=== PATIENT | female | born 1990 | race African-American/Black ===

== ENCOUNTER 2017-01-17 11:45 | Emergency (ER) | payer OTHER ==
[~2017-01-17] VITALS: Ht 160 cm; Wt 79.8 kg
[2017-01-17 12:54] LABS: BASOPHIL COUNT 0.1 K/uL (0-0.1); EOSINOPHIL (%) 3.1 % (0-5); EOSINOPHIL COUNT 0.2 K/uL (0-0.3); HEMATOCRIT 35.2 % (36.0-46.0); IMMATURE GRANULOCYTE (%) 0.1 % (0.0-0.7); IMMATURE GRANULOCYTE COUNT 0.1 K/uL; LYMPHOCYTE COUNT 1.9 K/uL (1.0-2.8); MCH 31.1 PG (29.0-34.0); MCHC 35.2 G/DL (30.0-36.0); MCV 88.2 FL (83-99); MEAN PLAT.VOLUME 11.5 uM^3 (9.5-12.4); MONOCYTE (%) 6.7 % (3-12); MONOCYTE COUNT 0.5 K/uL (0-0.8); NEUTROPHIL (%) 64.1 % (45-76); NEUTROPHIL COUNT 4.9 K/uL (1.8-6.4); PLATELET COUNT 218 K/uL (156-360); RBC DIS.WIDTH-CV 12.9 % (11.8-14.6); RBC DIS.WIDTH-SD 40.6 % (39-53); RED BLOOD COUNT 3.99 M/uL (3.80-5.20); WHITE BLOOD COUNT 7.7 K/uL (4.1-10.2)
[2017-01-17 13:04] LABS: CHLORIDE 109 mEq/L (99-109); POTASSIUM 3.6 mEq/L (3.7-5.4); SODIUM 142 mEq/L (136-147)
[2017-01-17 13:06] LABS: GLUCOSE 64 mg/dL (70-99)
[2017-01-17 13:07] LABS: ANION GAP 7 MEQ/L (2-14)
[2017-01-17 13:08] LABS: TOTAL BILIRUBIN 0.2 mg/dL (0.0-1.0)
[2017-01-17 13:10] LABS: ALKALINE PHOSPHATASE 85 IU/L (3-129); GFR ESTIMATE (CALCULATED) > 59 mL/min/
[2017-01-17 13:11] LABS: UREA NITROGEN (BUN) 9 mg/dL (9-23)
[2017-01-17 13:13] LABS: LIPASE 34 U/L (1.0-51.0)
[2017-01-17] MEDS ORDERED: VALTREX50 MG/ML PO (14:24)
[2017-01-17] MEDS ORDERED: MIRALAX17 GM PO (14:24)
[2017-01-17 14:58] VITALS: BP 121/83
[2017-01-18 12:16] LABS: CHLAMYDIA TRACHOMATIS NEGATIVE; NEISSERIA GONORRHOEAE NEGATIVE
== END 2017-01-17 15:27 | disposition home or self-care (01) ==
LOC: EME 11:45
PROVIDERS: Emergency Medicine
DX: R10.11 Right upper quadrant pain (principal); K59.00 Constipation, unspecified; A60.00 Herpesviral infection of urogenital system, unspecified
CPT/HCPCS: 74022; 80053; 83690; 85025; 87210; 87491; 87591; 99281; 99284

== ENCOUNTER 2017-02-08 09:18 | Emergency (ER) | payer OTHER ==
[~2017-02-08] VITALS: Ht 160 cm; Wt 79.2 kg
[~2017-02-08 09:18] MED LIST: MIRALAX17 GM PO; VALTREX50 MG/ML PO
[2017-02-08 10:13] LABS: HEMATOCRIT 38.5 % (36.0-46.0); MCH 30.9 PG (29.0-34.0); MCV 90.8 FL (83-99); RBC DIS.WIDTH-CV 12.6 % (11.8-14.6); RED BLOOD COUNT 4.24 M/uL (3.80-5.20)
[2017-02-08 10:16] LABS: WHITE BLOOD COUNT 11.6 K/uL (4.1-10.2)
[2017-02-08 10:25] LABS: CHLORIDE 108 mEq/L (99-109); POTASSIUM 4.3 mEq/L (3.7-5.4); SODIUM 140 mEq/L (136-147)
[2017-02-08 10:27] LABS: GLUCOSE 97 mg/dL (70-99)
[2017-02-08 10:28] LABS: ANION GAP 9 MEQ/L (2-14)
[2017-02-08 10:29] LABS: TOTAL BILIRUBIN 0.3 mg/dL (0.0-1.0)
[2017-02-08 10:30] LABS: ALKALINE PHOSPHATASE 93 IU/L (3-129)
[2017-02-08 10:31] LABS: GFR ESTIMATE (CALCULATED) > 59 mL/min/
[2017-02-08 10:32] LABS: UREA NITROGEN (BUN) 10 mg/dL (9-23)
[2017-02-08 10:34] LABS: LIPASE 27 U/L (1.0-51.0)
[2017-02-08 11:05] LABS: MEAN PLAT.VOLUME 11.6 uM^3 (9.5-12.4); PLATELET COUNT 240 K/uL (156-360)
[2017-02-08 11:23] VITALS: BP 121/89
== END 2017-02-08 11:23 | disposition home or self-care (01) ==
LOC: EME 09:18
PROVIDERS: Physician Assistant Medical
DX: B34.9 Viral infection, unspecified (principal)
CPT/HCPCS: 71020; 80053; 83690; 85027; 93005; 99281; 99285; J1885; J7030

== ENCOUNTER 2017-04-24 00:45 | Emergency (ER) | payer OTHER ==
[~2017-04-24] VITALS: Ht 162.6 cm; Wt 81.3 kg
[2017-04-24 01:40] LABS: HEMATOCRIT 37.4 % (36.0-46.0); MCH 30.4 PG (29.0-34.0); MCHC 34.2 G/DL (30.0-36.0); MCV 88.8 FL (83-99); MEAN PLAT.VOLUME 11.5 uM^3 (9.5-12.4); PLATELET COUNT 192 K/uL (156-360); RBC DIS.WIDTH-CV 12.6 % (11.8-14.6); RBC DIS.WIDTH-SD 41.2 % (39-53); RED BLOOD COUNT 4.21 M/uL (3.80-5.20)
[2017-04-24 01:52] LABS: CHLORIDE 109 mEq/L (99-109); POTASSIUM 4.2 mEq/L (3.7-5.4); SODIUM 141 mEq/L (136-147)
[2017-04-24 01:54] LABS: GLUCOSE 101 mg/dL (70-99)
[2017-04-24 01:55] LABS: ANION GAP 7 MEQ/L (2-14)
[2017-04-24 01:56] LABS: TOTAL BILIRUBIN 0.6 mg/dL (0.0-1.0)
[2017-04-24 01:58] LABS: ALKALINE PHOSPHATASE 70 IU/L (3-129); GFR ESTIMATE (CALCULATED) > 59 mL/min/
[2017-04-24 01:59] LABS: UREA NITROGEN (BUN) 8 mg/dL (9-23)
[2017-04-24 02:01] LABS: LIPASE 24 U/L (1.0-51.0)
[2017-04-24 02:07] LABS: QUANTITATIVE HCG < 4.0 MIU/ML
[2017-04-24] MEDS ORDERED: ZOFRAN8 MG PO (02:40)
[2017-04-24 03:40] VITALS: BP 130/89
== END 2017-04-24 03:41 | disposition home or self-care (01) ==
LOC: EME 00:45
DX: G89.18 Other acute postprocedural pain (principal); R10.9 Unspecified abdominal pain; R11.2 Nausea with vomiting, unspecified; K59.00 Constipation, unspecified
CPT/HCPCS: 74177; 80053; 81003; 83690; 84702; 85027; 99281; 99285; J2270; J2405; J7030

== ENCOUNTER 2017-07-06 23:11 | Emergency (ER) | payer OTHER ==
[~2017-07-06] VITALS: Ht 162.6 cm; Wt 81.5 kg
[~2017-07-06 23:11] MED LIST changes: +ZOFRAN8 MG PO
[2017-07-07] MEDS ORDERED: CLEOCIN300 MG PO (01:11)
[2017-07-07] MEDS ORDERED: NORCO 5/3251 TABLET PO (01:11)
[2017-07-07 01:19] VITALS: BP 133/95
== END 2017-07-07 01:25 | disposition home or self-care (01) ==
LOC: EME 23:11
DX: K05.30 Chronic periodontitis, unspecified (principal); M79.601 Pain in right arm
CPT/HCPCS: 99281; 99284

== ENCOUNTER 2017-08-03 18:39 | Emergency (ER) | payer OTHER ==
[~2017-08-03] VITALS: Ht 162.6 cm; Wt 84.3 kg
[~2017-08-03 18:39] MED LIST changes: +CLEOCIN300 MG PO; +NORCO 5/3251 TABLET PO
[2017-08-03] MEDS ORDERED: PERCOCET 5/31 TABLET PO (21:29)
[2017-08-03] MEDS ORDERED: AMOXICILLIN500 MG PO (21:29)
[2017-08-03] MEDS ORDERED: NAPROXEN500 MG PO (21:29)
[2017-08-03 22:01] VITALS: BP 145/99
== END 2017-08-03 22:02 | disposition home or self-care (01) ==
LOC: EME 18:39 → EXP 18:39
DX: K08.89 Other specified disorders of teeth and supporting structures (principal)
CPT/HCPCS: 99281; 99284; J8540

== ENCOUNTER 2017-08-23 12:17 | Emergency (ER) | payer OTHER ==
[~2017-08-23] VITALS: Ht 162.6 cm; Wt 84.8 kg
[~2017-08-23 12:17] MED LIST changes: +AMOXICILLIN500 MG PO; +NAPROXEN500 MG PO; +PERCOCET 5/31 TABLET PO
[2017-08-23] MEDS ORDERED: FLEXERIL10 MG PO (15:13)
[2017-08-23 15:30] VITALS: BP 133/102
== END 2017-08-23 15:30 | disposition home or self-care (01) ==
LOC: EME 12:17
DX: S16.1XXA Strain of muscle, fascia and tendon at neck level, initial encounter (principal); S00.03XA Contusion of scalp, initial encounter; S60.512A Abrasion of left hand, initial encounter; S60.511A Abrasion of right hand, initial encounter; S80.212A Abrasion, left knee, initial encounter; M25.532 Pain in left wrist; V43.52XA Car driver injured in collision with other type car in traffic accident, initial encounter; W22.10XA Striking against or struck by unspecified automobile airbag, initial encounter; Y92.410 Unspecified street and highway as the place of occurrence of the external cause
CPT/HCPCS: 70450; 72040; 73110; 99281; 99283